=== PATIENT | male | born 1990 | race Two or more races ===

== ENCOUNTER 2021-06-25 10:57 | Emergency (ER) | payer OTHER ==
[~2021-06-25] VITALS: Ht 180.3 cm; Wt 105.0 kg
[2021-06-25 11:00] VITALS: BP 126/80
== END 2021-06-25 12:43 | disposition home or self-care (01) ==
LOC: EMS 10:57
DX: G89.29 Other chronic pain (principal); M25.561 Pain in right knee; M25.562 Pain in left knee; M54.50 Low back pain, unspecified; F15.90 Other stimulant use, unspecified, uncomplicated; F41.9 Anxiety disorder, unspecified; F32.9 Major depressive disorder, single episode, unspecified; F17.210 Nicotine dependence, cigarettes, uncomplicated
CPT/HCPCS: 99283